=== PATIENT | female | born 1975 | race Caucasian/White ===

== ENCOUNTER 2022-05-17 10:55 | Day surgery (SDC) | payer BC ==
[2022-05-16 16:00] VITALS: BMI 21.2
[2022-05-17] MEDS ORDERED: PROPOFOL 80 ML ONE (12:26)
[2022-05-17] MEDS ORDERED: MIDAZOLAM HCL 2 MG/2 ML SINGLE DOSE VIAL ONE (12:26)
[2022-05-17] MEDS ORDERED: LIDOCAINE HCL 2% (20ML MULTI-DOSE VIAL) ONE (12:37)
[2022-05-17] MEDS ORDERED: GUM MASTIC/STORAX/MSAL/ALCOHOL 1 DRP DROPSBTL MC ONE (13:55)
[2022-05-17] MEDS ORDERED: PROMETHAZINE HCL 25 MG/1 ML VIAL IVPUSH PRN (15:54)
[2022-05-17] MEDS ORDERED: ONDANSETRON 4 MG/2 ML VIAL IVPUSH PRN (15:54)
[2022-05-17] MEDS ORDERED: oxyCODONE HCL 5 MG TABLET PO PRN ×2 (15:54)
[2022-05-17 16:18] VITALS: RESP 16
[2022-05-17] MEDS ORDERED: ONDANSETRON 4 MG/2 ML VIAL ONE (16:27)
[2022-05-17 16:42] VITALS: BP 118/78; TEMP 98.3
[2022-05-17 16:45] VITALS: PULSE 74
== END 2022-05-17 16:40 | disposition home or self-care (01) ==
LOC: FASU 10:55
PROVIDERS: ATTEND Podiatrist Foot Surgery
PROC: 0QBN0ZZ Excision of Right Metatarsal, Open Approach (ICD-10-PCS; 2022-05-17)
PROC: 0QSP0ZZ Reposition Left Metatarsal, Open Approach (ICD-10-PCS; 2022-05-17)
PROC: 0QSN0ZZ Reposition Right Metatarsal, Open Approach (ICD-10-PCS; 2022-05-17)
PROC: 0JBQ0ZZ Excision of Right Foot Subcutaneous Tissue and Fascia, Open Approach (ICD-10-PCS; 2022-05-17)
PROC: 0QSP04Z Reposition Left Metatarsal with Internal Fixation Device, Open Approach (ICD-10-PCS; principal; 2022-05-17 13:13)
PROC: 0QSN04Z Reposition Right Metatarsal with Internal Fixation Device, Open Approach (ICD-10-PCS; 2022-05-17 13:13)
PROC: 0QBP0ZZ Excision of Left Metatarsal, Open Approach (ICD-10-PCS; 2022-05-17 13:13)
DX: M21.612 Bunion of left foot (principal); M21.611 Bunion of right foot; M21.622 Bunionette of left foot; M21.621 Bunionette of right foot; M89.9 Disorder of bone, unspecified
CPT/HCPCS: 73630-TC-LT; 73630-TC-RT-FY; 84703; 88305-TC; 88311-TC; 94760